=== PATIENT | female | born 1955 | race Caucasian/White ===

== ENCOUNTER 2017-10-24 14:00 | Outpatient (RCR) | payer BC ==
[~2017-10-24 14:00] MED LIST: CALCIUM 600/VIT1 CAP PO; CLARITIN 1010 MG/TAB PO; CYMBALTA 60MG60 MG PO; DESYREL DIVIDO150 M1 PO; FISH OIL 1000MG1 CAP PO; LIPITOR 40MG TA40 MG PO; MYRBETR50MG PO; NEURONTIN600 MG/TAB PO; PERIOSTAT PO; PRINZIDE 12.5 M1 TAB PO; TYLENOL 8 HR PO; ULTRAM 50MG TAB50 MG PO; VITAMIN D32000 I1 PO
== END 2018-01-01 ==
LOC: MKS.ESL.PT
DX: M79.7 Fibromyalgia (principal); R53.1 Weakness

== ENCOUNTER → 2018-08-17 | Outpatient (CLI) | payer BC | LOC: MC.RAD 09:54 | DX: Z12.31 Encounter for screening mammogram for malignant neoplasm of breast (principal) ==

== ENCOUNTER 2019-12-17 13:00 | Outpatient (RCR) | payer BC | END 2020-01-03 | disposition home or self-care (01) | LOC: WSPT | DX: G20 Parkinson's disease (principal) ==

== ENCOUNTER → 2020-11-08 | Outpatient (CLI) | payer BC | LOC: MC.RAD 13:30 | DX: Z12.31 Encounter for screening mammogram for malignant neoplasm of breast (principal) ==